=== PATIENT | female | born 1990 | race Caucasian/White ===

== ENCOUNTER 2018-01-08 10:22 | Outpatient (CLI) | payer MEDICAID, SELFPAY ==
[2018-01-08 10:44] LABS: HCT 33.7 % (36.0-46.0); HGB 10.9 g/dL (12.0-15.5); Mean Corp. HGB Concentration 32.3 g/dL (32.0-36.0); Mean Corpuscular Hemoglobin 28.6 pg (27.0-33.0); Mean Corpuscular Volume 88.5 fL (80-95); Platelet Count 242 x1000/uL (130-400); RBC 3.81 m/cumm (4.00-5.20); RBC Distribution Width 13.2 % (11.7-14.6)
[2018-01-08 10:56] LABS: Glucose,1 Hr (Glucola) 67 mg/dL (80-140)
[2018-01-08 12:11] LABS: TSH (W/Ref FT4) 2.35 uIU/mL (0.358-3.74)
== END 2018-01-08 10:42 ==
PROVIDERS: Advanced Practice Midwife; PCP Family Medicine; Visit Provider Advanced Practice Midwife
DX: Z34.93 Encounter for supervision of normal pregnancy, unspecified, third trimester (principal); Z3A.28 28 weeks gestation of pregnancy; O99.283 Endocrine, nutritional and metabolic diseases complicating pregnancy, third trimester
CPT/HCPCS: 36415; 82950; 85027; 84443

== ENCOUNTER 2018-01-08 13:52 | Outpatient (REF) | payer MEDICAID, SELFPAY ==
[2018-01-09 14:22] LABS: Chlamydia Result Negative; GC Result Negative; Specimen Description CERVIX
== END 2018-01-08 14:12 ==
LOC: LBN 13:52
PROVIDERS: PCP Family Medicine; Visit Provider Advanced Practice Midwife
DX: Z34.91 Encounter for supervision of normal pregnancy, unspecified, first trimester (principal); Z11.3 Encounter for screening for infections with a predominantly sexual mode of transmission
CPT/HCPCS: 87491; 87591

== ENCOUNTER 2018-03-04 10:27 | Outpatient (REF) | payer MEDICAID, SELFPAY ==
[2018-03-06 14:48] LABS: Chlamydia Result Negative; GC Result Negative; Specimen Description CERVIX
== END 2018-03-04 10:47 ==
LOC: LBN 10:27
PROVIDERS: PCP Family Medicine; Visit Provider Nurse Practitioner
DX: Z34.93 Encounter for supervision of normal pregnancy, unspecified, third trimester (principal); Z36.85 Encounter for antenatal screening for Streptococcus B; Z11.3 Encounter for screening for infections with a predominantly sexual mode of transmission
CPT/HCPCS: 87491; 87591; 87081

== ENCOUNTER 2018-03-27 14:20 | Inpatient (IN) | payer MEDICAID, SELFPAY ==
[2018-03-27 15:53] LABS: HCT 37.1 % (36.0-46.0); HGB 11.8 g/dL (12.0-15.5); Mean Corp. HGB Concentration 31.8 g/dL (32.0-36.0); Mean Corpuscular Hemoglobin 26.2 pg (27.0-33.0); Mean Corpuscular Volume 82.3 fL (80-95); Mean Platelet Volume 9.5 fL (8.0-11.0); Platelet Count 234 x1000/uL (130-400); RBC 4.51 m/cumm (4.00-5.20); White Blood Cell Count 10.58 k/cumm (4.4-10.8)
[2018-03-27] MEDS: Ibuprofen 600 MG TAB PO (19:46)
[2018-03-27] MEDS: Acetaminophen 325 MG TAB 650 MG PO (19:46)
[2018-03-27] MEDS: Hamamelis Leaf/Glycerin 100 EACH BOX PR (19:47)
[2018-03-27] MEDS: Ondansetron 4 MG/2 ML VIAL IVP (20:36)
[2018-03-27] MEDS: Normal Saline Flush 10 ML SYR IVP (20:37)
[2018-03-28] MEDS: Acetaminophen 325 MG TAB 650 MG PO ×3 (02:04→16:02)
[2018-03-28] MEDS: Ibuprofen 600 MG TAB PO ×3 (02:04→16:02)
== END 2018-03-28 20:00 | disposition home or self-care (01) | DRG 807 ==
PROVIDERS: Admitting Provider Advanced Practice Midwife; PCP Family Medicine; Visit Provider Advanced Practice Midwife
DX: O69.3XX0 Labor and delivery complicated by short cord, not applicable or unspecified (principal); Z37.0 Single live birth; Z3A.39 39 weeks gestation of pregnancy; O99.284 Endocrine, nutritional and metabolic diseases complicating childbirth; E03.9 Hypothyroidism, unspecified
CPT/HCPCS: 85027; 86850; 86900; 86901; J2405

== ENCOUNTER 2018-04-10 13:28 | Outpatient (CLI) | payer MEDICAID, SELFPAY ==
[2018-04-10 14:00] LABS: HCT 39.2 % (36.0-46.0); HGB 12.5 g/dL (12.0-15.5)
[2018-04-10 15:28] LABS: TSH (W/Ref FT4) 0.22 uIU/mL (0.358-3.74)
[2018-04-10 16:31] LABS: FREE T4 1.07 ng/dL (0.76-1.46)
== END 2018-04-10 13:48 ==
PROVIDERS: PCP Family Medicine; Visit Provider Advanced Practice Midwife
DX: E03.9 Hypothyroidism, unspecified (principal); Z39.2 Encounter for routine postpartum follow-up
CPT/HCPCS: 36415; 84439; 84443; 85014; 85018

== ENCOUNTER 2018-05-07 16:11 | Outpatient (REF) | payer MEDICAID, SELFPAY ==
--- NOTE | 2018-05-07 10:30 | PAPFT_PTH ---
PATIENT: Rachael Clark LOC: [facility] U#:[id number] AGE/SX: 27/F ROOM: RE05/07/[address]: Martha Balderas RN : 1990 BED: DIS: 05/07/2018 SPEC #: [id number] RECD: 05/07/18 17:40 STATUS: CORNELIA REQ #: [id number] MATTHEW: 05/07/18 10:[address]: Martha Balderas DEPT: [facility] Cytology RECD BY: Roma Rodríguez ENTERED: 05/07/18 17:41 SP TYPE: PAPFT OTHR DR: Meli Trinh Tissues: 1 - CX/ENDOCX FOR PAP SMEARS Procedures: PAP THIN PREP/[facility] Screening Comments: [id number]
== END 2018-05-07 16:31 ==
LOC: LBN 16:11
PROVIDERS: PCP Family Medicine; Visit Provider Advanced Practice Midwife
DX: Z12.4 Encounter for screening for malignant neoplasm of cervix (principal)
CPT/HCPCS: 88142

== ENCOUNTER 2020-06-09 11:44 | Outpatient (REF) | payer MEDICAID, SELFPAY ==
[2020-06-09 15:32] LABS: TSH (W/Ref FT4) 9.38 uIU/mL (0.36-3.74)
[2020-06-09 15:55] LABS: FREE T4 0.66 ng/dL (0.76-1.46)
[2020-06-09 22:04] LABS: Thyroglobulin Antibody >500 U/mL (<=60); Thyroperoxidase Antibody >1300 U/mL (<=60)
== END 2020-06-09 11:45 | disposition home or self-care (01) ==
LOC: NCHCN 11:44
PROVIDERS: PCP Family Medicine; Visit Provider Family Medicine
DX: R63.5 Abnormal weight gain (principal); R53.83 Other fatigue; Z86.39 Personal history of other endocrine, nutritional and metabolic disease
CPT/HCPCS: 84439; 84443; 86376; 86800

== ENCOUNTER 2020-08-14 07:57 | Outpatient (REF) | payer MEDICAID, SELFPAY ==
[2020-08-14 14:30] LABS: TSH (W/Ref FT4) 1.14 uIU/mL (0.36-3.74)
== END 2020-08-14 07:58 | disposition home or self-care (01) ==
LOC: NCHCN 07:57
PROVIDERS: PCP Family Medicine; Visit Provider Family Medicine
DX: E03.9 Hypothyroidism, unspecified (principal)
CPT/HCPCS: 84443

== ENCOUNTER 2022-01-02 18:35 | Outpatient (REF) | payer MEDICAID, SELFPAY | END 2022-01-02 18:36 | disposition home or self-care (01) | LOC: LBN 18:35 | PROVIDERS: PCP Family Medicine; Visit Provider Nurse Practitioner Family | DX: J02.9 Acute pharyngitis, unspecified (principal) | CPT/HCPCS: 87077; 87070 ==

== ENCOUNTER 2025-01-07 04:01 | Outpatient (CLI) | payer MEDICAID, SELFPAY ==
[2025-01-07 14:20] LABS: Abs Immature Grans 0.03 10^3/uL (0.0-0.06); HCT 40.1 % (36.0-46.0); HGB 13.9 g/dL (11.2-15.7); Immature Grans % 0.3 %; MCH 30.2 pg (27.0-33.0); MCHC 34.7 % (32.0-36.0); MCV 87 fL (80-95); MPV 9.4 fL (8.0-11.0); Platelet Count 265 10^3/uL (130-400); RBC 4.61 10^6/uL (3.93-5.22); RDW 12.4 % (11.7-14.6); RDW-SD 39.4 fL; WBC 10.25 10^3/uL (4.4-10.8)
[2025-01-07 16:29] LABS: TSH (W/Ref FT4) 4.08 uIU/mL (0.36-3.74)
[2025-01-07 23:21] LABS: HIV-1/2 Ag & Ab Screen Negative (Negative)
[2025-01-07 23:47] LABS: Hepatitis C Ab w Rflx HCV PCR Negative (Negative)
[2025-01-10 13:22] LABS: Rubella IgG Ab (UVM) Positive (See Note)
[2025-01-11 14:33] LABS: Syphilis IgG w/Reflex Nonreactive (Nonreactive)
== END 2025-01-07 04:02 | disposition home or self-care (01) ==
LOC: LBO 04:01
PROVIDERS: PCP Family Medicine; Visit Provider Advanced Practice Midwife
DX: Z34.92 Encounter for supervision of normal pregnancy, unspecified, second trimester (principal); Z3A.12 12 weeks gestation of pregnancy
CPT/HCPCS: 36415; 86787; 86803; 86850; 86900; 86901; 87340; 87389; 84439; 84443; 85025; 86762; 86780

== ENCOUNTER 2025-01-07 12:54 | Outpatient (REF) | payer MEDICAID, SELFPAY ==
--- NOTE | 2025-01-07 13:00 | PAPFT_PTH ---
PATIENT: Rachael Clark LOC: [facility] U#:[id number] AGE/SX: 34/F ROOM: RE01/07/[address]: Charmaine Gtz : 1990 BED: DIS: 01/07/2025 SPEC #: [id number] RECD: 01/07/25 15:42 STATUS: CORNELIA KOHLER #: [id number] MATTHEW: 01/07/25 13:[address]: Charmaine Gtz DEPT: [facility] Cytology RECD BY: Roma Rodríguez ENTERED: 01/07/25 15:42 SP TYPE: PAPFT OTHR DR: Meli Trinh Tissues: 1 - CX/ENDOCX FOR PAP SMEARS Procedures: PAP THIN PREP/[facility] Screening HPV DNA PROBE Comments: [id number] (HPV 16 & 18/45) (CHLAMYDIA/GC)
[2025-01-07 15:33] LABS: Lab Add On Test DONE
[2025-01-07 16:45] LABS: Cannabinoids THC Negative (Negative); METHADONE URINE SCREEN Negative (Negative)
[2025-01-10 10:21] LABS: Fentanyl Scr w/Rfx Confirm Negative ng/mL (<1)
[2025-01-10 12:32] LABS: Chlamydia Result Negative (Negative); GC Result Negative (Negative)
== END 2025-01-07 12:55 | disposition home or self-care (01) ==
LOC: LBN 12:54
PROVIDERS: PCP Family Medicine; Visit Provider Advanced Practice Midwife
DX: Z34.92 Encounter for supervision of normal pregnancy, unspecified, second trimester (principal); Z3A.12 12 weeks gestation of pregnancy
CPT/HCPCS: 80307; 80348; 87491; 87591; 88142; 87086; 87624

== ENCOUNTER 2025-01-11 18:41 | Outpatient (REF) | payer MEDICAID, SELFPAY | END 2025-01-11 18:42 | disposition home or self-care (01) | LOC: LBN 18:41 | PROVIDERS: PCP Family Medicine; Visit Provider Advanced Practice Midwife | DX: O20.9 Hemorrhage in early pregnancy, unspecified (principal) | CPT/HCPCS: 87480; 87510; 87660 ==

== ENCOUNTER 2025-01-13 04:23 | Outpatient (CLI) | payer MEDICAID, SELFPAY ==
--- NOTE | 2025-01-13 09:20 | DI.US_ITS ---
Exam(s) US OB 1ST TRIMESTER EXAM: US OB 1ST TRIMESTER CLINICAL HISTORY: vaginal bleeding at 12 wks,ANTEPARTUM BLEEDING. TECHNIQUE: First trimester obstetrical ultrasound was performed. COMPARISON: US POCUS EXAM from 12/24/2024 FINDINGS: There is an intrauterine gestational sac which contains a yolk sac and viable pole which exhibits heart rate of 148 bpm. movement was also observed. [place]-rump length measurement is 68 mm, corresponding to 13 weeks and 1 day gestational age. Placenta is posterior. No obvious placenta previa. No obvious subchorionic hemorrhage nor abruption. There is normal amount of amniotic fluid. Maternal ovaries: Right ovary measures 2.5 x 1.9 x 3.7 appears unremarkable. Left ovary measures 3.3 x 2.4 x 3.0 cm and contains a corpus luteal cyst measuring 2.7 x 1.7 x 2.3 cm. There is a small amount of free fluid in the left adnexa. IMPRESSION:: Single viable intrauterine gestation which is approximately 13 weeks and 1 day gestational age by crown rump length measurement. Normal amount of amniotic fluid. No obvious sub placental hemorrhage. There is a corpus luteal cyst in the left ovary measuring 27 x 17 x 23 mm and there is small amount of fluid in the adjacent left and No extraovarian adnexal masses evident. DATA REPOSITORY:
== END 2025-01-13 04:43 ==
LOC: DI 04:23
PROVIDERS: PCP Family Medicine; Visit Provider Advanced Practice Midwife
DX: O20.9 Hemorrhage in early pregnancy, unspecified (principal)
CPT/HCPCS: 76801

== ENCOUNTER 2025-02-04 03:22 | Outpatient (CLI) | payer MEDICAID, SELFPAY ==
[2025-02-04 11:01] LABS: TSH (W/Ref FT4) 6.80 uIU/mL (0.36-3.74)
[2025-02-07 15:57] LABS: AFP 23.6 ng/mL; Prev Pregnancy w/NTD No; RECOMMENDED FOLLOW UP None.
== END 2025-02-04 03:23 | disposition home or self-care (01) ==
PROVIDERS: PCP Family Medicine; Visit Provider Advanced Practice Midwife
DX: Z34.91 Encounter for supervision of normal pregnancy, unspecified, first trimester (principal); E03.9 Hypothyroidism, unspecified
CPT/HCPCS: 36415; 82105; 84439; 84443

== ENCOUNTER → 2025-03-07 02:18 | Outpatient (CLI) | payer MEDICAID, SELFPAY ==
--- NOTE | 2025-03-07 13:30 | DI.US_ITS ---
Exam(s) US OB 2-3 TRIMESTER EXAM: US OB 2-3 TRIMESTER CLINICAL HISTORY: ,z34.90. TECHNIQUE: Transabdominal obstetrical ultrasound performed. COMPARISON: US POCUS EXAM from 12/24/2024 US US OB 1ST TRIMESTER from 01/13/2025 FINDINGS: Number of fetuses: 1 position: Variable Placental location: Posterior . The edge of the placenta extends to the margin of the internal os but does not definitely cross the os. BIOMETRIC DATA: BPD: 46 mm, 20+ 0 weeks HC: 181 mm, 20+ 4 weeks AC: 146 mm, 19+ 6 weeks FL: 31 mm, 19+ 5 weeks Cisterna magna: 4 mm Cerebellum: 2 cm Lateral ventricle: 5 mm EFW: 317 grams, 10 % Composite Age: 20+ 0 weeks PRO: August 07 Heart Rate: BPM Amniotic fluid: Amount of fluid is visually within normal limits. ANATOMICAL SURVEY: Four-chambered heart: Unremarkable. LVOT: Unremarkable. Aorta: Not well seen. RVOT: Unremarkable. Left-sided stomach: Unremarkable. urinary bladder: Unremarkable. Bilateral kidneys: Unremarkable. Three-vessel cord: Unremarkable. Cord insertion: Unremarkable. Posterior fossa:Unremarkable. ventricles: Unremarkable. nose: Unremarkable. lips: Unremarkable. palate: Unremarkable. spine: Unremarkable. Two arms and two legs: Unremarkable. IMPRESSION: 1. Single live intrauterine gestation with composite age of 20+ 0 weeks 2. Normal anatomic survey. The aortic arch is not well visualized. The patient is scheduled to return for additional imaging 14 March 2025. 3. Marginal placenta previa. DATA REPOSITORY:
== END ==
LOC: DI 02:18
PROVIDERS: PCP Family Medicine; Visit Provider Advanced Practice Midwife
DX: Z34.92 Encounter for supervision of normal pregnancy, unspecified, second trimester (principal)
CPT/HCPCS: 76805

== ENCOUNTER → 2025-03-14 03:57 | Outpatient (CLI) | payer MEDICAID, SELFPAY ==
--- NOTE | 2025-03-14 | DI.US_ITS ---
Exam(s) US OB F/U FACIAL/LVOT/RVOT EXAM: US OB F/U FACIAL/LVOT/RVOT CLINICAL HISTORY: F/U SCAN 03/07, AORTIC ARCH. TECHNIQUE: Transabdominal obstetrical ultrasound was performed. COMPARISON: US US OB 2-3 TRIMESTER from 03/07/2025 FINDINGS: There is a single viable intrauterine gestation with cardiac activity identified-151 bpm Amniotic fluid: There is a normal amount of amniotic fluid with an RICHIE of cm. Placental location: The placenta is posterior grade 1,with no evidence of placenta previa. anatomy: This study was to better visualize the aortic arch which was apparently not able to be well visualized on the recent study of 03/07/2025. On today's study good images of the aortic arch were obtained and appears unremarkable. No evidence of obvious coarctation. IMPRESSION:: aortic arch appears unremarkable. DATA REPOSITORY:
== END ==
LOC: DI 03:57
PROVIDERS: PCP Family Medicine; Visit Provider Advanced Practice Midwife
DX: O28.8 Other abnormal findings on antenatal screening of mother (principal)
CPT/HCPCS: 76815

== ENCOUNTER 2025-03-23 00:41 | Outpatient (CLI) | payer MEDICAID, SELFPAY ==
[2025-03-23 10:04] LABS: TSH (W/Ref FT4) 1.71 uIU/mL (0.55-4.78)
== END 2025-03-23 00:42 | disposition home or self-care (01) ==
LOC: LBO 00:41
PROVIDERS: PCP Family Medicine; Visit Provider Advanced Practice Midwife
DX: Z34.92 Encounter for supervision of normal pregnancy, unspecified, second trimester (principal); E03.9 Hypothyroidism, unspecified
CPT/HCPCS: 36415; 84443